=== PATIENT | male | born 1960 | race Two or more races ===

== ENCOUNTER 2020-01-30 08:04 | Emergency (ER) | payer SELFPAY ==
[~2020-01-30] VITALS: Ht 167.6 cm; Wt 49.9 kg
[2020-01-30] MEDS ORDERED: LORazepam Inj 2mg/ml 1ml ONE (08:11)
[2020-01-30] MEDS ORDERED: DiphenhydrAMINE 50mg/ml Inj ONE (08:11)
[2020-01-30] MEDS ORDERED: Haloperidol 5mg/ml Inj ONE (08:11)
[2020-01-30] MEDS ORDERED: LORazepam Inj 2mg/ml 1ml IM ONE (08:15)
[2020-01-30] MEDS ORDERED: DiphenhydrAMINE 50mg/ml Inj IM ONE (08:15)
[2020-01-30] MEDS ORDERED: Haloperidol 5mg/ml Inj IM ONE (08:15)
--- NOTE | 2020-01-30 08:15 | NUR ---
ED Nurse Note:pt. was BIBA from the street by [employer] and [employer] with agitation due to substance obuse, possible crystal meth, skin is intact, pt. is screaming and disoriented on arrival- was given IM haldol and ativan, continue monitoring
[2020-01-30 08:28] VITALS: BP 142/80
--- NOTE | 2020-01-30 08:30 | NUR ---
ED Nurse Note: Pt started calming down
--- NOTE | 2020-01-30 08:35 | NUR ---
ED Nurse Note: All labs sent
--- NOTE | 2020-01-30 09:08 | Emergency Room Report ---
History of Present Illness General Chief Complaint: Overdose Source: EMS, Law Enforcement (Humberto Ludwig MD) Present Illness HPI Unidentified male brought to ED for agitation, possible overdose. Assisted by [employer] and [employer]. Agitated and screaming on streets today. In restraints. Unable to provide any additional history at this time. Not providing his name. Not willing to state what if he took any drugs. Unclear if there is any psychiatric history. No other aggravating relieving factors. No other associated symptoms (Humberto Lduwig MD) Allergies: Coded Allergies: UNABLE TO ASSESS (Unverified , 01/30/20) COVID-19 Screening Contact w/high risk pt: No Recent Travel to affected area: No Experienced COVID-19 symptoms?: No (Humberto Ludwig MD) Patient History Past Medical History: none Past Surgical History: none Pertinent Family History: none Social History: Denies: smoking, alcohol use, drug use Immunizations: UTD Reviewed Nursing Documentation: PMH: Agreed; PSxH: Agreed (Humberto Ludwig MD) Review of Systems All Other Systems: limited (Humberto Ludwig MD) Physical Exam Vital Signs Date Time Temp Pulse Resp B/P (MAP) Pulse Ox O2 Delivery O2 Flow Rate FiO2 01/30/20 08:00 100 25 142/80 (100) 98 Room Air Sp02 EP Interpretation: reviewed, normal General Appearance: alert, other - agitated/combative Head: normocephalic Eyes: bilateral eye normal inspection, bilateral eye PERRL ENT: normal ENT inspection Neck: normal inspection Respiratory: chest non-tender, lungs clear, normal breath sounds, speaking full sentences Cardiovascular #1: regular rate, rhythm, no edema Gastrointestinal: normal bowel sounds, non tender, soft, non-distended, no guarding, no rebound Rectal: deferred Genitourinary: no CVA tenderness Musculoskeletal: normal inspection Neurologic: other - agitated/combative Psychiatric: other - agitated/combative Skin: no rash Lymphatic: normal inspection (Humberto Ludwig MD) Medical Decision Making ER Course Patient signed out to me pending reassessment. Patient was given medications for agitation this morning. When I evaluated the patient he was alert, oriented , ambulatory, he was provided food and clothing. He denies any suicidal or homicidal ideations. He was stable for discharge. (Brandon Weems M.D.) Last Vital Signs Date Time Temp Pulse Resp B/P (MAP) Pulse Ox O2 Delivery O2 Flow Rate FiO2 01/30/20 08:28 100 25 142/80 98 Room Air (Humberto Ludwig MD) Status: improved (Brandon Weems M.D.) Disposition: HOME, SELF-CARE Condition: Stable Referrals: NOT CHOSEN IPA/,REFERRING (PCP) Humberto Ludwig MD January 30, 2020 09:08 Brandon Weems M.D. January 30, 2020 15:29
[2020-01-30 09:32] LABS: EOSINOPHILS % (AUTO) 0.1 % (0.0-3.0); HEMATOCRIT 33.5 % (42.0-52.0); LYMPHOCYTES % (AUTO) 16.1 % (20.0-45.0); MEAN CORPUSCULAR VOLUME 93 FL (80-99); MONOCYTES % (AUTO) 6.7 % (1.0-10.0); NEUTROPHILS % (AUTO) 76.1 % (45.0-75.0); PLATELET COUNT 230 K/UL (150-450); RED BLOOD COUNT 3.62 M/UL (4.70-6.10); RED CELL DISTRIBUTION WIDTH 12.4 % (11.6-14.8); WHITE BLOOD COUNT 5.6 K/UL (4.8-10.8)
[2020-01-30 09:36] LABS: ANION GAP 18 mmol/L (5-15); BLOOD UREA NITROGEN 49 mg/dL (7-18); CALCIUM 9.3 MG/DL (8.5-10.1); CARBON DIOXIDE 21 MMOL/L (21-32); CHLORIDE 103 MMOL/L (98-107); CREATININE 2.2 MG/DL (0.55-1.30); POTASSIUM 3.7 MMOL/L (3.5-5.1); SODIUM 141 MMOL/L (136-145)
[2020-01-30 09:45] LABS: ALBUMIN 4.1 G/DL (3.4-5.0); ALBUMIN/GLOBULIN RATIO 1.2 (1.0-2.7); ALKALINE PHOSPHATASE 48 U/L (46-116)
[2020-01-30 09:55] LABS: ALANINE AMINOTRANSFERASE 47 U/L (12-78); ASPARTATE AMINO TRANSFERASE 58 U/L (15-37); BILIRUBIN,TOTAL 1.5 MG/DL (0.2-1.0)
[2020-01-30 09:57] LABS: BILIRUBIN,DIRECT 0.4 MG/DL (0.0-0.3)
[2020-01-30 11:02] VITALS: BP 161/74
--- NOTE | 2020-01-30 13:55 | NUR ---
ED Nurse Note: Pt asleep comfortably. No SOB or diaphoresis. Continue to monitor.
--- NOTE | 2020-01-30 15:45 | NUR ---
ER DISCHARGE NOTE: Patient is cleared to be discharged per ERMD. pt id band and iv site removed without complications. Pt is able to ambulate with steady gait and took all belongings. Pt upset, refused sign and recieve the discharge papers.
== END 2020-01-30 15:45 | disposition home or self-care (01) ==
LOC: EDBD 08:04 → EMR 08:20
DX: R45.1 Restlessness and agitation (principal)
CPT/HCPCS: 36415; 80053; 80307; 82248; 85025; 96360; 96372; 99284; G0480; J1200; J1630; J7030